=== PATIENT | female | born 1970 | race Caucasian/White ===

== ENCOUNTER 2016-12-02 22:45 | Emergency (ER) | payer MEDICAID ==
[~2016-12-02] VITALS: Ht 154.9 cm; Wt 72.6 kg
[~2016-12-02 22:45] MED LIST: ALBUTEROL SULF8.5 GM INH; ASPIRIN EC81 MG ORAL; BACTRIM DS TAB1 EAC1 ORAL; BACTRIM DS TAB1 EACH PO; CEPHALEXIN500 MG PO; CHERATUSSIN AC118 ML PO; CLEOCIN150 MG PO; COLACE100 MG ORAL; FERROUS SULFAT325 MG ORAL; HUMALOG100 UNIT/4 SUBQ; IBUPROFEN600 MG ORAL; IBUPROFEN600 MG PO; KEFLEX500 MG ORAL; LANTUS5 UNITS SUBQ; LEVAQUIN750 MG ORAL; MACROBID100 MG ORAL; NAPROSYN500 M1 ORAL; NORCO 5-325 TA1 EAC1 ORAL; NORCO 5-325 TA1 EACH ORAL; NOVOLIN R100 UNIT/1 SUBQ; OCUFLOX5 ML OP; PENICILLIN V P500 MG PO; SERTRALINE HCL25 MG ORAL; SYNTHROID100 MCG ORAL; TYLENOL #31 TAB PO; ZOCOR20 MG ORAL; ZOFRAN ODT4 MG ORAL; ZOFRAN4 M1 ORAL; ZOFRAN4 M3 ORAL; insulin
--- NOTE | 2016-12-02 23:09 | Emergency Room Report ---
History of Present Illness General Chief Complaint: Headache Source: Patient, Family Member Present Illness HPI Is a 38-year-old female with no significant past medical history. She does have a history of anxiety. She presents with chief complaint of headache and confusion. According to her daughter, she had an argument with a family member. Afterward she complaining of headache and confusion. She was hyperventilating patient complained of numbness to her face. Could her daughter she's also confused. Does not know where she is. Is now no one she is here. Focal deficit. Allergies: Coded Allergies: No Known Allergies (Unverified , 05/27/12) Patient History Past Medical History: see triage record, old chart reviewed Past Surgical History: other Pertinent Family History: none Social History: Denies: smoking Last Menstrual Period: NOT ANYMORE Now: No Immunizations: other Reviewed Nursing Documentation: PMH: Agreed, PSxH: Agreed Nursing Documentation-PMH Hx Hypertension: Yes Hx Pacemaker: No Hx Asthma: Yes Hx COPD: No Hx Diabetes: Yes Hx Cancer: No Hx Dialysis: No Hx Cerebrovascular Accident: No Hx Seizures: No Review of Systems Eye: Denies: blurred vision, eye pain ENT: Denies: ear pain, nose congestion, throat swelling Respiratory: Denies: cough, shortness of breath Cardiovascular: Denies: chest pain, palpitations Gastrointestinal: Denies: abdominal pain, diarrhea, nausea, vomiting Musculoskeletal: Denies: back pain, joint pain Skin: Denies: rash Neurological: Reports: headache, numbness Endocrine: Denies: increased thirst, increased urine Hematologic/Lymphatic: Denies: easy bruising All Other Systems: negative except mentioned in HPI Physical Exam Vital Signs Date Time Temp Pulse Resp B/P Pulse Ox O2 Delivery O2 Flow Rate FiO2 12/02/16 22:53 98.2 90 18 189/92 94 Room Air vitals with hypertension Sp02 EP Interpretation: reviewed, normal General Appearance: well appearing, no apparent distress, alert Head: normocephalic, atraumatic Eyes: bilateral eye EOMI, bilateral eye PERRL ENT: hearing grossly normal, normal pharynx Neck: full range of motion, supple, no meningismus Respiratory: chest non-tender, lungs clear, normal breath sounds Cardiovascular #1: regular rate, rhythm, no murmur Gastrointestinal: normal bowel sounds, non tender, no mass, no organomegaly, no bruit, non-distended Musculoskeletal: back normal, gait/station normal, normal range of motion Psychiatric: anxious - Crying. Skin: warm/dry Medical Decision Making Diagnostic Impression: Primary Impression: Panic attack as reaction to stress Additional Impressions: Headache Qualified Codes: G44.209 - Tension-type headache, unspecified, not intractable Hyperglycemia due to type 1 diabetes mellitus Obesity (BMI 30-39.9) ER Course Patient presents with panic attack. Diabetes also poorly controlled. CT scan negative. We'll discharge him. She felt better after Ativan. CT/MRI/US Diagnostic Results CT/MRI/US Diagnostic Results : Imaging Test Ordered: ct head Impression neg per radiologist. Last Vital Signs Date Time Temp Pulse Resp B/P Pulse Ox O2 Delivery O2 Flow Rate FiO2 12/02/16 22:53 98.2 90 18 189/92 94 Room Air Status: improved Disposition: HOME, SELF-CARE Condition: Stable Scripts Ibuprofen* (MOTRIN*) 600 Mg Tablet 600 MG ORAL THREE TIMES A DAY, #30 TAB 0 Refills Prov: MARTHA DAVIS M.D. 12/03/16 Additional Instructions: Take your insulin. Follow up with your doctor in 7 days. Return if worse. MARTHA DAVIS M.D. December 02, 2016 23:08
[2016-12-02] MEDS ORDERED: LORazepam Inj 2mg/ml 1ml IM ONE (23:15)
[2016-12-03 00:10] VITALS: BP 151/74
[2016-12-03] MEDS ORDERED: IBUPROFEN600 MG ORAL (00:10)
[2016-12-03 00:22] VITALS: BP 133/49
--- NOTE | 2016-12-03 09:04 | Diagnostic Imaging Report ---
Indication: Altered mental status Technique: Contiguous 5 mm thick transaxial imaging of the head obtained in a Siemens Sensation [address] scanner. Soft tissue and bone windows generated. Total Dose length Product (DLP): [address] Dose Index Volume (CTDIvol): 70.38 mGy Comparison: 04/25/15 Findings: The size and configuration of the cortical sulci, basal cisterns, and ventricles are within normal limits for age. There is no mass effect, midline shift, or edema identified. There is no evidence of acute hemorrhage or abnormal intra-axial or extra-axial fluid collections. The bones and soft tissues are unremarkable. Impression: No mass effect, edema or acute bleed. [facility] has communicated the preliminary results to the Emergency Department. Their findings are largely concordant with this report. The CT scanner at [facility] is accredited by the [employer] and the scans are performed using protocols designed to limit radiation exposure to as low as reasonably achievable to attain images of sufficient resolution adequate for diagnostic evaluation.
== END 2016-12-03 00:52 | disposition home or self-care (01) ==
LOC: EMR 23:05
DX: F41.0 Panic disorder [episodic paroxysmal anxiety] (principal); R51 Headache; E11.9 Type 2 diabetes mellitus without complications; J45.909 Unspecified asthma, uncomplicated; R41.82 Altered mental status, unspecified
CPT/HCPCS: 70450; 82962; 96372; 99284

== ENCOUNTER 2016-12-30 16:11 | Emergency (ER) | payer MEDICAID ==
[~2016-12-30] VITALS: Ht 162.6 cm; Wt 72.6 kg
[2016-12-30] MEDS ORDERED: TYLENOL COLD H1 EAC4 PO (16:42)
[2016-12-30 16:45] VITALS: BP 112/57
[2016-12-30 16:55] VITALS: BP 112/57
--- NOTE | 2016-12-30 18:21 | Emergency Room Report ---
History of Present Illness General Chief Complaint: Sore Throat Source: Patient Present Illness HPI 46 yo F presents to ED c/o sore throat and ear ache x 1 week. patient notes pain to both ears, L worse than right. 8/10 throbbing. nonradiating. also notes cough. notes sore throat. denies fevers or chills. denies sick contacts or recent travel. has tried OTC theraflu without relief. no other aggravting or relieving factors. denies any other associated symptoms. Allergies: Coded Allergies: No Known Allergies (Unverified , 05/27/12) Patient History Past Medical History: DM, HTN, asthma Past Surgical History: none Pertinent Family History: none Social History: Denies: alcohol use, drug use, smoking Last Menstrual Period: 3 yrs ago Now: No Immunizations: UTD Reviewed Nursing Documentation: PMH: Agreed, PSxH: Agreed Nursing Documentation-PMH Past Medical History: No History, Except For Hx Hypertension: Yes Hx Pacemaker: No Hx Asthma: Yes Hx COPD: No Hx Diabetes: Yes Hx Cancer: No Hx Dialysis: No Hx Cerebrovascular Accident: No Hx Seizures: No Review of Systems All Other Systems: negative except mentioned in HPI Physical Exam Vital Signs Date Time Temp Pulse Resp B/P Pulse Ox O2 Delivery O2 Flow Rate FiO2 12/30/16 16:26 98.2 76 18 112/57 98 Room Air Sp02 EP Interpretation: reviewed, normal General Appearance: no apparent distress, alert, GCS 15, non-toxic Head: normocephalic, atraumatic Eyes: bilateral eye PERRL, bilateral eye normal inspection ENT: hearing grossly normal, normal pharynx, no angioedema, normal voice Neck: full range of motion, supple/symm/no masses Respiratory: chest non-tender, lungs clear, normal breath sounds, speaking full sentences Cardiovascular #1: regular rate, rhythm, no edema Cardiovascular #2: 2+ carotid (R), 2+ carotid (L), 2+ radial (R), 2+ radial (L) , 2+ dorsalis pedis (R), 2+ dorsalis pedis (L) Gastrointestinal: normal bowel sounds, non tender, soft, non-distended, no guarding, no rebound Rectal: deferred Genitourinary: normal inspection, no CVA tenderness Musculoskeletal: back normal, gait/station normal, normal range of motion, non- tender Neurologic: alert, oriented x3, responsive, motor strength/tone normal, sensory intact, speech normal Psychiatric: judgement/insight normal, memory normal, mood/affect normal, no suicidal/homicidal ideation Reflexes: 3+ bicep (R), 3+ bicep (L), 3+ tricep (R), 3+ tricep (L), 3+ knee (R) , 3+ knee (L) Skin: normal color, no rash, warm/dry, well hydrated Lymphatic: no adenopathy Medical Decision Making Diagnostic Impression: Primary Impression: URI (upper respiratory infection) Qualified Codes: J06.9 - Acute upper respiratory infection, unspecified ER Course Hospital Course 46 year-old female presents to ED complaining of cough, runny nose with bilateral ear ache Differential diagnoses include: URI, pharyngitis, otitis media, asthma Clinical course Patient placed on stretcher. After initial history, physical exam reveals a female in no acute distress. Bilateral TM unremarkable. No pharyngeal erythema. No tonsillar exudates. No lymphadenopathy. lungs clear. abdomen soft. Clinical findings consistent with URI. Reassurance given. treatment is supportive therapy Diagnosis - URI Stable and discharged home with Rx Tylenol multisymptom. Instructed to followup with PMD. Return to ED if symptoms recur or worsen Last Vital Signs Date Time Temp Pulse Resp B/P Pulse Ox O2 Delivery O2 Flow Rate FiO2 12/30/16 16:26 98.2 76 18 112/57 98 Room Air Status: improved Disposition: HOME, SELF-CARE Condition: Stable Scripts Guaifen/Phenyleph/Acetaminophn (Tylenol Cold Head Congest Cplt) 1 Each Tablet 1 EACH PO QID, #30 TAB Prov: KHADAR PANIAGUA M.D. 12/30/16 Referrals: NOT CHOSEN IPA/,REFERRING (PCP) Patient Instructions: Upper Respiratory Infection, Adult, [id number] KHADAR PANIAGUA M.D. December 30, 2016 18:21
== END 2016-12-30 16:55 | disposition home or self-care (01) ==
LOC: EMR 16:30
DX: J06.9 Acute upper respiratory infection, unspecified (principal); H92.03 Otalgia, bilateral; I10 Essential (primary) hypertension; E11.9 Type 2 diabetes mellitus without complications; J45.909 Unspecified asthma, uncomplicated
CPT/HCPCS: 99283

== ENCOUNTER 2017-06-24 20:22 | Emergency (ER) | payer MEDICAID ==
[~2017-06-24] VITALS: Ht 152.4 cm; Wt 79.4 kg
[~2017-06-24 20:22] MED LIST changes: +TYLENOL COLD H1 EAC4 PO
--- NOTE | 2017-06-24 20:56 | Emergency Room Report ---
History of Present Illness General Chief Complaint: Skin Rash/Abscess Source: Patient Present Illness HPI The patient presents with pain in her left ring finger that radiates up to her elbow. It has been worsening for several days. This redness there also swelling. No fevers or chills. No local or systemic treatment. Pain 9/10, constant, burning and aching, worse when dependent. Slight red extend dorsum of hand. She had tetanus last when she was a child. Diabetic with alleged good control. No chest pain, cough, NVD, dysuria, other extremity pain. Some headache. HTN, hyperthyroid. 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 Last Menstrual Period: n/a Reviewed Nursing Documentation: PMH: Agreed, PSxH: Agreed Nursing Documentation-PMH Past Medical History: No History, Except For Hx Hypertension: Yes Hx Pacemaker: No Hx Asthma: Yes Hx COPD: No Hx Diabetes: Yes Hx Cancer: No Hx Dialysis: No Hx Cerebrovascular Accident: No Hx Seizures: No Review of Systems All Other Systems: negative except mentioned in HPI Physical Exam Vital Signs Date Time Temp Pulse Resp B/P (MAP) Pulse Ox O2 Delivery O2 Flow Rate FiO2 06/24/17 20:32 97.9 71 16 104/63 96 Room Air Sp02 EP Interpretation: reviewed, normal General Appearance: well appearing, no apparent distress, GCS 15, non-toxic Head: normocephalic, atraumatic Eyes: bilateral eye normal inspection, bilateral eye PERRL ENT: hearing grossly normal, normal voice, moist mucus membranes Neck: full range of motion, supple Respiratory: no respiratory distress, speaking full sentences Musculoskeletal: inflammation, swelling, other - passive movement of tendon without pain Neurologic: alert, motor strength/tone normal, sensory intact, normal gait Psychiatric: mood/affect normal Skin: other - erythema dorsum of ring finger extends slightly into dorsum of hand Medical Decision Making Diagnostic Impression: Primary Impression: Cellulitis Qualified Codes: L03.012 - Cellulitis of left finger Additional Impression: Diabetes Qualified Codes: E11.8 - Type 2 diabetes mellitus with unspecified complications; Z79.4 - nursing home (current) use of insulin ER Course Patient with infection of finger and h/o diabetes. Ddx: cellulitis, tendonitis , abscess amongst others. Exam against abscess and tendonitis. Slight increased risk with DM. Needs tetanus, antibiotics and analgesia. Accucheck done. Antibiotics and tetanus given. Pain improved. Sling applied by tech. Position excellent and improved. Neurovasc checked by me and normal. Patient stable for outpatient observation and treatment. Last Vital Signs Date Time Temp Pulse Resp B/P (MAP) Pulse Ox O2 Delivery O2 Flow Rate FiO2 06/24/17 22:02 97.9 84 17 110/58 98 Room Air Status: improved Disposition: HOME, SELF-CARE Condition: Improved Scripts Bacitracin (Bacitracin) 28.4 Gm Oint...g. 1 APPLIC TOPIC BID, #14 GM Prov: Mustapha Walker M.D. 06/24/17 Ibuprofen* (MOTRIN*) 600 Mg Tablet 600 MG ORAL Q6H Y for For Pain, #12 TAB Prov: Mustapha Walker M.D. 06/24/17 Trimethoprim/Sulfamethoxazole 160/800* (BACTRIM DS TABLET*) 1 Each Tablet 1 TAB ORAL Q12H, #14 TAB 0 Refills Prov: Mustapha Walker M.D. 06/24/17 Mustapha Walker M.D. Jun 24, 2017 20:56
[2017-06-24 21:00] VITALS: BP 104/63
[2017-06-24] MEDS ORDERED: Tetanus/Diptheria/Pertussis Vaccine 0.5ml Syr IM ONE (21:00)
[2017-06-24] MEDS ORDERED: Bactrim DS (160mg/800mg) tab ORAL ONE (21:00)
[2017-06-24] MEDS ORDERED: Bacitracin Oint UD TOPIC ONE (21:00)
[2017-06-24] MEDS ORDERED: BACTRIM DS TAB1 EAC1 ORAL (21:41)
[2017-06-24] MEDS ORDERED: BACITRACIN15 GM TOPIC (21:41)
[2017-06-24] MEDS ORDERED: IBUPROFEN600 MG ORAL (21:41)
[2017-06-24 22:00] VITALS: BP 110/58
[2017-06-24 22:02] VITALS: BP 110/58
== END 2017-06-24 22:02 | disposition home or self-care (01) ==
LOC: EMR 21:01
DX: L03.012 Cellulitis of left finger (principal); Z23 Encounter for immunization; I10 Essential (primary) hypertension; J45.909 Unspecified asthma, uncomplicated
CPT/HCPCS: 82962; 90471; 90715; 99284

== ENCOUNTER 2017-10-07 23:43 | Emergency (ER) | payer MEDICAID ==
[~2017-10-07] VITALS: Ht 154.9 cm; Wt 82.1 kg
[~2017-10-07 23:43] MED LIST changes: +BACITRACIN15 GM TOPIC
[2017-10-08] MEDS ORDERED: Ketorolac 60mg Inj IM ONE (00:15)
--- NOTE | 2017-10-08 00:18 | Emergency Room Report ---
History of Present Illness General Chief Complaint: Headache Source: Patient Present Illness HPI Patient presents with complaints of pain to the forehead Pain just below both eyes Headache started around 6:30 after patient had argument with family Patient also has increased nausea Denies any neck pain or photophobia denies any chest pain or shortness of breath Patient is a diabetic on insulin however has not checked her glucose today Denies any fall or trauma and has any focal weakness Allergies: Coded Allergies: No Known Allergies (Unverified , 05/27/12) Patient History Past Medical History: see triage record Pertinent Family History: none Last Menstrual Period: 3 YEARS AGO Reviewed Nursing Documentation: PMH: Agreed, PSxH: Agreed Nursing Documentation-PMH Hx Hypertension: Yes Hx Pacemaker: No Hx Asthma: Yes Hx COPD: No Hx Diabetes: Yes Hx Cancer: No Hx Dialysis: No Hx Cerebrovascular Accident: No Hx Seizures: No Review of Systems All Other Systems: negative except mentioned in HPI Physical Exam Vital Signs Date Time Temp Pulse Resp B/P (MAP) Pulse Ox O2 Delivery O2 Flow Rate FiO2 10/07/17 23:45 98.5 75 16 124/68 95 Room Air 98.4 Sp02 EP Interpretation: reviewed, normal General Appearance: well appearing, no apparent distress Head: normocephalic, atraumatic Eyes: bilateral eye PERRL, bilateral eye EOMI ENT: hearing grossly normal, normal pharynx, TMs + canals normal, uvula midline Neck: full range of motion, supple, no meningismus, no bony tend Respiratory: lungs clear, normal breath sounds, no rhonchi, no respiratory distress, no retraction, no accessory muscle use Cardiovascular #1: normal peripheral pulses, regular rate, rhythm, no edema, no gallop, no JVD, no murmur Gastrointestinal: normal bowel sounds, non tender, soft, no mass, no organomegaly, non-distended, no guarding, no hernia, no pulsatile mass, no rebound Genitourinary: no CVA tenderness Musculoskeletal: normal inspection Neurologic: oriented x3, responsive, construction executive III-XII nml as tested, motor strength/ tone normal, sensory intact Psychiatric: mood/affect normal Skin: normal color, no rash, warm/dry, palpation normal Lymphatic: normal inspection, no adenopathy Medical Decision Making Diagnostic Impression: Primary Impression: Headache ER Course Multiple differentials are considered patient has a nonfocal neurological examination Has had 3 CAT scan imaging in the past in the emergency room here I did not feel the patient met criteria for acute imaging at this time Patient was treated for acute pain Is doing significantly better Accu-Chek reveals elevated glucose patient was provided with insulin here Is recommended to follow her Accu-Cheks closely she does have a sliding scale at home On reevaluation remains neurovascularly/neurologically intact and stable for close follow-up Last Vital Signs Date Time Temp Pulse Resp B/P (MAP) Pulse Ox O2 Delivery O2 Flow Rate FiO2 10/07/17 23:45 98.5 75 16 124/68 95 Room Air 98.4 Status: improved Disposition: HOME, SELF-CARE Condition: Improved Scripts Ibuprofen* (MOTRIN*) 600 Mg Tablet 600 MG ORAL Q8H Y for For Pain, #20 TAB 0 Refills Prov: ANALI ZAMORA D.O. 10/08/17 Additional Instructions: Patient is provided with the discharge instructions notified to follow up with primary doctor in the next 2-3 days otherwise return to the er with any worsening symptoms. Please note that this report is being documented using TRA technology. This can lead to erroneous entry secondary to incorrect interpretation by the dictating instrument. ANALI ZAMORA D.O. Oct 08, 2017 00:18
[2017-10-08] MEDS ORDERED: IBUPROFEN600 MG ORAL (01:26)
[2017-10-08 01:45] VITALS: BP 114/70
== END 2017-10-08 01:50 | disposition home or self-care (01) ==
LOC: EMR 23:59
DX: R51 Headache (principal); I10 Essential (primary) hypertension; E11.9 Type 2 diabetes mellitus without complications
CPT/HCPCS: 82962; 96372; 99283; J1815